=== PATIENT | male | born 1985 | race Caucasian/White ===

== ENCOUNTER 2019-07-28 16:18 | Emergency (ER) | payer SELFPAY ==
[2019-07-28 16:32] VITALS: BP 155/98; PULSE 94; RESP 18; TEMP 36.7; O2SAT 97; BMI 30.7
--- NOTE | 2019-07-28 17:08 | ED_ITS ---
HPI - Abdominal Pain General: Chief Complaint: Abdominal Pain Stated Complaint: abd pain Time Seen by Provider: 07/28/19 17:08 Source: patient Mode of arrival: ambulatory Limitations: no limitations History of Present Illness: HPI narrative: Patient presents with left lower quadrant abdominal pain and blood in the stool. Patient appears well. Patient appears in no acute distress. Patient does report some moderate amounts of blood past with stool. Patient denies any previous episodes. Patient reports no hemorrhoids. Patient's mother had a history of diverticulitis. MD elicited complaint: abdominal pain Pertinent past history: gastrointestinal bleeding Associated Symptoms: Reports hematochezia Review of Systems General: Reports: 10 or more systems reviewed and unremarkable except in HPI and below GI: Reports: hematochezia PFSH ED PFSH: Social History Smoking and tobacco status: current every day smoker Physical Exam Const: COMMON NORMALS: no acute distress and patient oriented x3 GENERAL APPEARANCE: cooperative HENMT: COMMON NORMALS: normocephalic and Normal external nose present HEAD & SCALP: normal to inspection and normocephalic NOSE: Normal external nose present MOUTH: Normal oral and palatal mucosa present Eye: GENERAL EYE: appearance normal, both eyes and all related structures Neck/C-Spine: COMMON NORMALS: full ROM Chest: COMMONS NORMALS: normal inspection of the chest Resp: COMMON NORMALS: normal respiratory effort EFFORT & INSPECTION: Yes able to speak in complete sentences Cardio: COMMON NORMALS: regular rate and regular rhythm RATE: regular rate RHYTHM: regular rhythm GI: PALPATION: Yes Tenderness to palpation present (GI) Details: LLQ RECTAL EXAM: Yes normal sphincter tone, Yes Visual inspection abnormal (multiple skin tags at anus) and Yes heme positive stool : COMMON NORMALS: Yes no CVA tenderness BLADDER/KIDNEY EXAM: Yes no CVA tenderness Back/Pelvis: COMMON NORMALS: no CVA tenderness and thoracic and lumbar spine normal to inspection Extremity: COMMON NORMALS: normal to inspection Neuro: COMMON NORMALS: patient oriented x3 and moves all extremities Psych: COMMON NORMALS: mental status grossly normal and cooperative Skin: COMMON NORMALS: no rashes or lesions noted GENERAL SKIN EXAM: no rashes or lesions noted Course Vital Signs: Vital signs: Vital Signs Temperature 98.2 F 07/28/19 19:35 Pulse Rate 78 07/28/19 19:35 Respiratory Rate 16 07/28/19 19:35 Blood Pressure 145/95 07/28/19 19:35 Pulse Oximetry 97 07/28/19 19:35 MDM - Abdominal Pain MDM Narrative: Medical decision making narrative: Patient presents with blood in stool. Patient noticed that 2 days ago prior. Patient denies any history of hemorrhoids. Exam noted abdomen soft with some tenderness in the left lower quadrant. Bowel sounds are present. Rectal exam noted normal sphincter tone, multiple skin tags to the anal opening, no obvious palpation of internal hemorrhoid. Differential diagnosis includes colitis, internal hemorrhoid, diverticulitis, gastroenteritis. CT scan of the abdomen noted colitis. Laboratory values noted a mild elevation in white blood cell count 12,000. Reviewed exam with patient with recommendations for treatment with Cipro and Flagyl and follow-up with surgeon for colonoscopy. Patient reported understanding. Lab Data: Labs: Lab Results 07/28/19 07/28/19 Range/Units 17:43 17:43 WBC 12.6 H (4.0-10.0) 10^3/ uL RBC 5.39 H (4.1-5.3) 10^6/u L Hgb 15.9 (11.7-16.6) g/dL Hct 47.7 (42.0-52.0) % MCV 88.5 (80-94) fL MCH 29.5 (28.0-34.0) pg MCHC 33.3 (30.0-36.0) g/dL RDW 12.4 (12.1-15.1) % Plt Count 332 (130-400) 10^3/c mm MPV 10.0 (7.4-10.4) fL Neut % (Auto) 70.0 % Lymph % (Auto) 21.0 % Jerome % (Auto) 6.7 % Eos % (Auto) 1.8 % Baso % (Auto) 0.2 % Neut # (Auto) 8.8 H (1.8-7.7) 10^3/u L Lymph # (Auto) 2.6 (0.8-4.8) 10^3/u L Jerome # (Auto) 0.8 (0.2-0.9) 10^3/u L Eos # (Auto) 0.2 (0.0-0.8) 10^3/u L Baso # (Auto) 0.0 (0.0-0.1) 10^3/u L Nucleated RBC % (a uto) 0 % Nucleated RBCs # 0.0 /100WBC Sodium 139 (136-145) mmol/L Potassium 3.9 (3.5-5.1) mmol/L Chloride 101 (98-107) mmol/L Carbon Dioxide 24 (22-29) mmol/L Anion Gap 17.9 (5-19) BUN 13 (6-20) mg/dL Creatinine 0.9 (0.7-1.2) mg/dL GFR Calculation 97.2 (90-130) mL/min Glucose 99 (65-115) mg/dL Calculated Osmolal ity 284 L (285-295) mOsm/k g Calcium 10.2 (8.5-10.5) mg/dL Total Bilirubin 0.5 (0.15-1.2) mg/dL AST 19 (0-40) U/L ALT 29 (0-41) U/L Alkaline Phosphata se 75 (40-130) IU/L Total Protein 7.7 (6.6-8.7) g/dL Albumin 5.1 (3.5-5.2) g/dL Globulin 2.6 (1.3-4.6) g/dL Discharge Plan Discharge Patient Disposition: Home, Self-Care Clinical Impression: Infectious colitis Condition: Stable Prescriptions: New ciprofloxacin HCl 500 mg tablet 500 mg PO BID Qty: 14 RF: 0 hydrocodone-acetaminophen 5-325 mg tablet 1 tab PO Q8H PRN (Reason: pain (scale score 7-10)) Qty: 6 RF: 0 metronidazole 500 mg tablet 500 mg PO BID 7 Days Qty: 14 RF: 0 Discharge Orders: Discharge Order (Routine); Ordered 07/28/19 Ordered By: Red Faria Discharge Diet: Usual diet Discharge Activity: Increase activity as tolerated Activity Restrictions/Additional Instructions: Home and rest. Drink plenty of fluids. Take antibiotics as directed. Follow-u p with primary care in 1 week. Case management will contact you regarding a referral for colonoscopy and recommended follow-up relating bleeding from the colon. Return to the ER for worsening symptoms, or new concerns. Coding Level of Care Code ED [facility] Exam Comprehensive
--- NOTE | 2019-07-28 17:08 | XRR_ITS ---
PROCEDURE INFORMATION: Exam: XR Complete Acute Abdomen Series Exam date and time: 07/28/2019 5:09 PM Age: 33 years old Clinical indication: Abdominal pain; Patient HX: Abd pain and blood in stool; Additional info: Abd pain, blood in stool TECHNIQUE: Imaging protocol: XR complete acute abdomen series, including 2 or more views of the abdomen and a single view chest. COMPARISON: No relevant prior studies available. FINDINGS: Lungs: Normal. No consolidation. Pleural space: Normal. No pneumothorax. Heart/Mediastinum: Normal. No cardiomegaly. Gastrointestinal tract: Unremarkable. No bowel dilation. Nonobstructive bowel pattern. No visible evidence for significant adynamic or reactive ileus. Intraperitoneal space: Unremarkable.. No free air. Bones/joints: Unremarkable. No acute fracture. Soft tissues: Unremarkable. XR/XR acute abdomen series [id number] IMPRESSION: No acute findings.
--- NOTE | 2019-07-28 17:25 | CTR_ITS ---
PROCEDURE INFORMATION: Exam: CT Abdomen And Pelvis With Contrast Exam date and time: 07/28/2019 8:15 PM Age: 33 years old Clinical indication: Abdominal pain; Generalized; Patient HX: C/O abd pain and bloody stool; Additional info: Gi bleed TECHNIQUE: Imaging protocol: Computed tomography of the abdomen and pelvis with intravenous contrast. Radiation optimization: All CT scans at this facility use at least one of these dose optimization techniques: automated exposure control; mA and/or kV adjustment per patient size (includes targeted exams where dose is matched to clinical indication); or iterative reconstruction. Contrast material: OMNI 300; Contrast volume: 95 ml; Contrast route: 20G; COMPARISON: CR (ABDOMEN, ) 07/28/2019 5:12 PM RADIATION DOSE METRICS: Total DLP: 724.61 mGy-cm FINDINGS: Lungs: Limited assessment lung bases without visible evidence of active cardiopulmonary process. Liver: Unremarkable. No mass. Gallbladder and bile ducts: Normal. No calcified stones. No ductal dilation. Pancreas: Normal. No ductal dilation. Spleen: Normal. No splenomegaly. Adrenals: Normal. No mass. Kidneys and ureters: Normal. No hydronephrosis. Stomach and bowel: Potential for mild colitis of the descending colon to the sigmoid colon junction beginning just distal to the splenic flexure. This section of the descending colon is nondistended and demonstrates mild mucosal thickening. Remainder of the colon appears unremarkable. No visible evidence of diverticulitis. No visible adynamic or reactive ileus. Incidental note of an undigested pill in the cecum. Appendix: The appendix is identified and is noninflamed. Intraperitoneal space: Unremarkable. No free air. No significant fluid collection. Vasculature: Unremarkable. No abdominal aortic aneurysm. Lymph nodes: Unremarkable. No enlarged lymph nodes. Bladder: Unremarkable as visualized. Reproductive: Unremarkable as visualized. Bones/joints: Unremarkable. No acute fracture. Soft tissues: Unremarkable. CT/CT abdomen pelvis w con* [id number] IMPRESSION: Potential mild colitis involving the descending colon as detailed in text above. Radiation Dose CTDIVOL = (mGy): DLP = 724.61 (mGy-cm)
[2019-07-28 17:54] LABS: Basophils % 0.2 %; Eosinophils # 0.2 10^3/uL (0.0-0.8); Eosinophils % 1.8 %; Hematocrit 47.7 % (42.0-52.0); Hemoglobin 15.9 g/dL (11.7-16.6); Lymphocytes # 2.6 10^3/uL (0.8-4.8); Mean Corpuscular HGB Conc 33.3 g/dL (30.0-36.0); Mean Corpuscular Hemoglobin 29.5 pg (28.0-34.0); Mean Corpuscular Volume 88.5 fL (80-94); Monocytes # 0.8 10^3/uL (0.2-0.9); Monocytes % 6.7 %; Neutrophils # 8.8 10^3/uL (1.8-7.7); Nucleated Red Blood Cells % 0 %; Platelet Count 332 10^3/cmm (130-400); Red Blood Count 5.39 10^6/uL (4.1-5.3); Red Cell Distribution Width 12.4 % (12.1-15.1); White Blood Count 12.6 10^3/uL (4.0-10.0)
[2019-07-28 18:18] LABS: Alanine Aminotransferase 29 U/L (0-41); Albumin Level 5.1 g/dL (3.5-5.2); Alkaline Phosphatase 75 IU/L (40-130); Anion Gap 17.9 (5-19); Aspartate Amino Transferase 19 U/L (0-40); Blood Urea Nitrogen 13 mg/dL (6-20); Calcium 10.2 mg/dL (8.5-10.5); Carbon Dioxide 24 mmol/L (22-29); Chloride 101 mmol/L (98-107); Globulin 2.6 g/dL (1.3-4.6); Glomerular Filtration Rate 97.2 mL/min (90-130); Glucose 99 mg/dL (65-115); Osmolality Calculated 284 mOsm/kg (285-295); Potassium 3.9 mmol/L (3.5-5.1); Sodium 139 mmol/L (136-145); Total Bilirubin 0.5 mg/dL (0.15-1.2); Total Protein 7.7 g/dL (6.6-8.7)
[2019-07-28 19:35] VITALS: BP 145/95; PULSE 78; RESP 16; TEMP 36.8; O2SAT 97
[2019-07-28] MEDS: iohexol 300 mg/mL 100 mL Btl IV (20:46)
[2019-07-28] MEDS: HYDROcodone-acetaminophen 5-325 mg Tablet 1 TAB PO (21:04)
[2019-07-28] MEDS: metroNIDAZOLE 500 MG Tablet PO (21:10)
[2019-07-28] MEDS: ciprofloxacin 500 mg Tablet PO (21:10)
[2019-07-28 21:18] VITALS: PULSE 74; RESP 16; O2SAT 98
--- NOTE | 2019-07-31 09:30 | DCPLANNER ---
acting manager had message to schedule a follow up appointment for patient with general surgery. acting manager called [facility], spoke with Mitra, a follow up appointment is scheduled for Tuesday, August 06, 2019 at 11:[address] Carter. Clinic will call patient with appointment information.
--- NOTE | 2019-08-10 14:31 | DCPLANNER ---
Patient had a follow up appointment scheduled for patient with [facility]. Patient did not attend appointment.
== END 2019-07-28 21:17 | disposition home or self-care (01) ==
PROVIDERS: Emergency Provider Nurse Practitioner Family
DX: A09 Infectious gastroenteritis and colitis, unspecified (principal); F17.210 Nicotine dependence, cigarettes, uncomplicated
CPT/HCPCS: 12345; 74022; 74177; 80053; 85025; 99281; 99283; Q9967

== ENCOUNTER 2020-01-04 12:44 | Outpatient (CLI) | payer SELFPAY ==
[2020-01-04 14:21] LABS: Side 1 130; Side 2 130
[2020-01-04 14:25] LABS: Pathology Referral Yes; Sperm Immotility 0 % (50-60); Sperm Non-Progressive Motility 5 % (5-10); Sperm Progressive Motility 95 % (31-34); Viscosity Semen Normal
== END 2020-01-04 12:45 | disposition home or self-care (01) ==
PROVIDERS: PCP Nurse Practitioner Family; Visit Provider Urology
DX: Z31.41 Encounter for fertility testing (principal)
CPT/HCPCS: 80500; 89320

== ENCOUNTER → 2022-12-24 09:18 | Outpatient (BNVA) | payer BC, SELFPAY | PROVIDERS: PCP Nurse Practitioner Family; Visit Provider Emergency Medicine | DX: R69 Illness, unspecified (principal); U07.1 COVID-19 | CPT/HCPCS: 87400; 87426 ==